=== PATIENT | male | born 1955 | race Caucasian/White ===

== ENCOUNTER → 2018-12-04 | Outpatient (CLI) | payer BC ==
[~2018-12-04] MED LIST: SULFAMETH/TRIMETH; Z EXFORGE MT; Z.0.COUMADIN2 MG PO; Z.0.NAPROXEN500 M1 MT
--- NOTE | 2018-12-06 18:04 | Myoview Stress Test ---
DATE OF STUDY: 12/04/2018 09:02:00 Stress Test - Treadmill ONLY PROCEDURE TITLE: Rest/stress single isotope SPECT imaging with exercise stress and gated SPECT imaging. INDICATION: Chest pain. PROCEDURE: The patient performed treadmill exercise using a Jos protocol, exercising for 6 minutes 21 seconds to stage III and completing estimated workload of 7 metabolic equivalents (METS). The heart rate was 102 beats per minute at rest and increased to 173 beats per minute at peak exercise, which was 109% of the maximum predicted heart rate. The rest blood pressure was 103/82 mmHg and increased to 134/82 mmHg. The resting electrocardiogram demonstrated normal sinus rhythm. There were no ST segment changes suggestive of myocardial ischemia. Myocardial perfusion imaging was performed at rest following the injection of 11 mCi of tetrofosmin. At peak exercise, the patient was injected with 32 mCi of tetrofosmin and exercise was continued for 1 minute. Gated post-stress tomographic imaging was performed. FINDINGS: The overall quality of the study is fair. Left ventricular cavity is noted to be normal size on the rest and stress studies. SPECT images demonstrate homogeneous tracer distribution throughout the myocardium. Gated SPECT imaging reveals normal myocardial thickening and wall motion. Left ventricular ejection fraction was calculated to be 70%. IMPRESSION: Myocardial perfusion imaging is normal. Overall, left ventricular systolic pressure was normal without regional wall motion abnormalities. Maryana Hopper MD ABS/MODL /[id number]
== END ==
LOC: NM 08:56
PROVIDERS: ATTEND Internal Medicine
DX: R06.09 Other forms of dyspnea (principal)
CPT/HCPCS: 78452; 93017; A9502

== ENCOUNTER → 2022-02-26 | Outpatient (CLI) | payer MEDICARE, BC ==
[~2022-02-26] MED LIST changes: +B COMPLEX1 EACH; +EDARBYCLOR 40-1 EACH PO; +GLIMEPIRIDE2 MG PO; +MULTI-VITAMIN1 EACH PO; +NIFEDIPINE ER60 M1; +VITAMIN C1000 MG PO; +ZINC
== END ==
LOC: US 09:31
PROVIDERS: ATTEND Surgery
DX: E07.9 Disorder of thyroid, unspecified (principal)
CPT/HCPCS: 76536

== ENCOUNTER 2022-03-05 10:33 | Inpatient (IN) | payer MEDICARE, BC ==
[2022-03-03 10:10] LABS: BASOPHILS # (AUTO) 0.1 (0.0-0.1); BASOPHILS % 1.1 % (0.0-1.0); EOSINOPHILS # (AUTO) 0.1 (0.0-0.4); EOSINOPHILS % 2.3 % (0.0-6.0); HEMATOCRIT 43.4 % (38.2-49.6); HEMOGLOBIN 15.2 g/dL (14.0-18.0); LYMPHOCYTES # (AUTO) 1.8 (1.0-3.2); LYMPHOCYTES % 31.8 % (18.0-39.1); MEAN CORPUSCULAR HEMOGLOBIN 32.8 pg (28-32); MEAN CORPUSCULAR VOLUME 93.7 fL (81-99); MONOCYTES # (AUTO) 0.8 (0.2-0.8); MONOCYTES % 14.2 % (4.4-11.3); NEUTROPHILS # (AUTO) 2.8 (2.1-6.9); NEUTROPHILS % 50.1 % (38.7-80.0); PLATELET COUNT 185 x10e3/uL (140-360); RED BLOOD COUNT 4.63 x10e6/uL (4.3-5.7); RED CELL DISTRIBUTION WIDTH 11.9 % (11.7-14.4)
[2022-03-03 10:33] LABS: ANION GAP 15.4 mmol/L (8-16); CALCIUM 10.9 mg/dL (8.4-10.2); CREATININE, SERUM 1.28 mg/dL (0.72-1.25); POTASSIUM 4.4 mmol/L (3.5-5.1)
[~2022-03-05] VITALS: Ht 193 cm; Wt 90.7 kg
[2022-03-05 11:14] LABS: INR 1.03; PROTHROMBIN TIME 14.4 seconds (11.9-14.5)
[2022-03-05 11:15] LABS: PARTIAL THROMBOPLASTIN TIME 24.4 seconds (23.8-35.5)
[2022-03-05] MEDS ORDERED: INSULIN REGULAR, HUMAN 100 UNIT/1 ML ONE (12:17)
[2022-03-05] MEDS ORDERED: ROCURONIUM BROMIDE 10 MG/ML 5ML VIAL IV ONE (13:22)
[2022-03-05] MEDS ORDERED: PHENYLEPHRINE HCL 1% 10 MG/ML VIAL ONE (13:22)
[2022-03-05] MEDS ORDERED: LIDOCAINE HCL 2% LOCAL INJ 5 ML SDV VIAL INJ ONE (13:22)
[2022-03-05] MEDS ORDERED: ONDANSETRON HCL INJ 2MG/ML 2ML 2 MG/ML VIAL ONE (13:22)
[2022-03-05] MEDS ORDERED: POVIDONE IODINE 0.05% 0.05 % ML PO ONE (13:22)
[2022-03-05] MEDS ORDERED: LIDOCAINE HCL 2% JELLY 5 ML TUBE ONE (13:22)
[2022-03-05] MEDS ORDERED: PROPOFOL IV EMULSION 10 MG/ML 20 ML VIAL ONE (13:22)
[2022-03-05] MEDS ORDERED: SEVOFLURANE INHAL SOLN 250 ML PEN BTL ONE (13:22)
[2022-03-05] MEDS ORDERED: ONDANSETRON HCL INJ 2MG/ML 2ML 2 MG/ML VIAL IV PRN (15:00)
[2022-03-05] MEDS ORDERED: Morphine 4mg INJECTION 4 MG/ML INJ IV PRN (15:00)
[2022-03-05] MEDS ORDERED: DEXTROSE 50% SYRINGE 50 ML IV PRN (15:00)
[2022-03-05] MEDS ORDERED: HYDROCODONE/APAP 5MG-325MG TAB PO PRN (15:00)
[2022-03-05] MEDS ORDERED: MIDAZOLAM HCL 2 MG/2 ML VIAL ONE (15:12)
[2022-03-05] MEDS ORDERED: FENTANYL CITRATE/PF 100MCG/2 ML INJ ONE (15:12)
[2022-03-05] MEDS ORDERED: MEPERIDINE HCL INJ 25 MG/ML VIAL ONE (15:41)
[2022-03-05 15:50] VITALS: BP 134/91
[2022-03-05 16:05] VITALS: BP 134/91
[2022-03-05] MEDS: SODIUM CHLORIDE 0.9% 1000ML 1,000 ML IV SCH (16:29)
[2022-03-05] MEDS: INSULIN LISPRO 100 UNIT/1 ML 3ML VIAL SQ SCH ×2 (16:57→22:00)
[2022-03-05 20:06] VITALS: BP 117/82
[2022-03-05 20:30] VITALS: BP 117/82
[2022-03-06 00:56] VITALS: BP 114/86
[2022-03-06] MEDS: SODIUM CHLORIDE 0.9% 1000ML 1,000 ML IV SCH ×2 (01:00→11:40)
[2022-03-06 04:00] VITALS: BP 107/74
[2022-03-06 08:10] VITALS: BP 107/74
[2022-03-06 08:15] VITALS: BP 102/74
[2022-03-06] MEDS ORDERED: ASCORBIC ACID 500 MG TAB PO SCH (09:00)
[2022-03-06] MEDS ORDERED: MULTIVITAMINS/MINERALS TAB PO SCH (09:00)
[2022-03-06] MEDS ORDERED: GLIMEPIRIDE 2 MG TAB PO SCH (09:00)
[2022-03-06] MEDS: INSULIN LISPRO 100 UNIT/1 ML 3ML VIAL SQ SCH (11:40)
[2022-03-06 12:14] VITALS: BP 93/73
== END 2022-03-06 12:32 | disposition home or self-care (01) | DRG 627 ==
LOC: OR 10:33 → PACU V 15:09 → MED/SURG3 15:54
PROVIDERS: ADMIT Surgery; ATTEND Surgery
PROC: 0GBH0ZZ Excision of Right Thyroid Gland Lobe, Open Approach (ICD-10-PCS; 2022-03-05)
PROC: 0GBG0ZZ Excision of Left Thyroid Gland Lobe, Open Approach (ICD-10-PCS; principal; 2022-03-05 12:32)
DX: E21.0 Primary hyperparathyroidism (principal); E04.2 Nontoxic multinodular goiter; F41.9 Anxiety disorder, unspecified; M47.892 Other spondylosis, cervical region; Z86.16 Personal history of COVID-19; Z86.718 Personal history of other venous thrombosis and embolism; Z79.01 Long term (current) use of anticoagulants; I73.9 Peripheral vascular disease, unspecified; E11.51 Type 2 diabetes mellitus with diabetic peripheral angiopathy without gangrene; Z79.4 Long term (current) use of insulin; H91.90 Unspecified hearing loss, unspecified ear; Z20.822 Contact with and (suspected) exposure to COVID-19
CPT/HCPCS: 0223U; 36415; 80048; 82310; 82948; 85025; 85610; 85730; 88304; 93005; 94799; J0690; J1817; J2001; J2175; J2250; J2370; J2405; J3010; J7030